=== PATIENT | female | born 1980 | race Caucasian/White ===

== ENCOUNTER 2020-01-04 08:37 | Emergency (ER) | payer BC ==
--- OUTSIDE RECORDS SUMMARY | 2020-01-04 08:43 | XMS REPORT | Continuity of Care Document ---
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 Problems Active Problems Provider Date Uterine scar from previous surgery in [place] Onset: 01/31/2014 , childbirth and the puerperium - delivered Thrombocytopenic disorder Noelle Roque RPA-C, [facility] Onset: 04/27/2014 Wound seroma Joann Burkett MD Onset: 07/23/2014 Social History Type Date Description Comments Sex Unknown Tobacco Use Start: Unknown Never Smoked Cigarettes ETOH Use Denies alcohol use Recreational Drug Use Denies Drug Use Tattoo/Piercing Tattoo one top of right foot Tattoo/Piercing Pierced ears Sun Exposure Uses sunscreen Seat Belt/Car Seat always uses seat belt Guns in Home Yes, Locked Up Smoke Alarms Yes Smoke Alarms Carbon Monoxide Detector: Yes Recent Travel There has not been recent travel abroad Allergies, Adverse Reactions, Alerts Description No Known Drug Allergies Medications Active Medications SIG Qnty Indications Ordering Provider Date Mirena (52 MG) to be inserted in 1units Joann Burkett MD 11/30/2019 office 20mcg/24HR IUD Diflucan 1 by mouth x's1, 2tabs Cecy Low, 03/06/2015 150mg Tablets may repeat in 4 CNM days if needed Mirena Lot #Tuoowvx [place] 10/04/2014 20mcg/24HR IUD inserted 10/04/14 to be removed 10/04/19 Nystatin apply to area 15gm Cecy Low, 08/22/2014 [id number]/GM twice a day for CNM Cream as long as infant is being treated Vitamin D-3 2 po qd Joann Burkett MD 02/02/2014 2000Unit Tablets Multi +Dha 1 po qd 30caps Unknown 27-0.8-228mg Capsules Motrin 600 MG 1 q 6 hrs Unknown Immunizations Description No Information Available Vital Signs Date Vital Result Comment 11/05/2014 1:55pm BP Systolic 118 mmHg BP Diastolic 68 mmHg Weight 139.00 lb Height 68 inches 5'8" BMI (Body Mass Index) 21.1 kg/m2 10/04/2014 3:14pm BP Systolic 116 mmHg BP Diastolic 84 mmHg Weight 140.00 lb Height 68 inches 5'8" BMI (Body Mass Index) 21.3 kg/m2 Results Description No Information Available Procedures Description No Information Available Medical Devices Description No Information Available Encounters Description No Information Available Assessments Description No Information Available Plan of Treatment 10/04/2014 - [place] [facility].[email or web address] Complication Other Seroma Complicating A ProcedureComments:no s/sx of infection and reviewed what those s/sx of infection would be. time spent [id number] Insertion IUDComments:reviewed r/b of placement of iud prior to placing mirena including but not limited to bleeding infection perforation of uterus embedded iud and expulsion of iud.she tolerated procedure well and will f/u in 4wks for string check. see procedure note for details.time spent 10min Functional Status Functional Condition Comment Date Status None Active Mental Status Description No Information Available Referrals Description No Information Available
--- OUTSIDE RECORDS SUMMARY | 2020-01-04 08:43 | XMS REPORT | Continuity of Care Document ---
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 time spent [id number] Insertion IUDComments:reviewed r/b of placement of iud [...]
[2020-01-04 08:51] VITALS: BP 128/76
[2020-01-04 09:13] LABS: Influenza A Molecular POSITIVE (Negative)
--- NOTE | 2020-01-04 09:48 | UC ---
General HPI - HPI Summary HPI Summary: Yesterday started with PND, cough and sore throat. This morning woke up feeling like she was hit by a truck. Chills/fever and URI s/s persisted. No smoking hx. No n/v/d. Did get flu shot. Works at [employer] Has used inhalers because her cough has given her a hernia meds; reviewed - History of Current Complaint Chief Complaint: UCRespiratory Stated Complaint: FEVER,COUGH Time Seen by Provider: 01/04/20 08:53 Hx Last Menstrual Period: Mirena IUD Pain Intensity: 0 - Allergy/Home Medications Allergies/Adverse Reactions: Allergies Allergy/AdvReac Type Severity Reaction Status Date / Time No Known Allergies Allergy Verified 01/04/20 08:48 Home Medications: Home Medications Albuterol HFA INHALER* [Ventolin HFA Inhaler*] 2 puff INH Q4H PRN #1 mdi [Rx] Benzonatate CAP* [Tessalon 100 MG CAP*] 100 mg PO TID PRN #30 cap 01/04/20 [Rx] Levonorgestrel (Iud) [Mirena IUD] 20 mcg IU ONCE 01/04/20 [History Confirmed 03/20] Oseltamivir CAP* [Tamiflu CAP*] 75 mg PO BID #10 cap 01/04/20 [Rx] Spacer/Holding Chamber (NF) [Easivent CHAMBER (NF)] 1 applic INH Q4HR PRN #1 device 01/04/20 [Rx] PMH/Surg Hx/FS Hx/Imm Hx Previously Healthy: Yes - Surgical History Surgical History: Yes Surgery Procedure, Year, and Place: Umbilical Herniorrhaphy, [address] [place] [address] ; x 2 , R knee - Family History Known Family History: Positive: None, Unknown - Social History Alcohol Use: Rare Substance Use Type: None Smoking Status (MU): Never Smoked Tobacco - Immunization History Most Recent Influenza Vaccination: [id number] Review of Systems All Other Systems Reviewed And Are Negative: Yes Constitutional: Positive: Fever, Chills ENT: Positive: Sore Throat, Nasal Discharge Respiratory: Positive: Cough Physical Exam Triage Information Reviewed: Yes Appearance: Other: - mildly ill appearing Vital Signs: Initial Vital Signs Temp 100.6 F 01/04/20 08:46 Pulse 111 01/04/20 08:46 Resp 18 01/04/20 08:46 BP 128/76 01/04/20 08:46 Pulse Ox 100 01/04/20 08:46 Vital Signs Reviewed: Yes ENT: Positive: Pharyngeal erythema, Nasal congestion, TMs normal Neck: Positive: Supple, Nontender Respiratory: Positive: Lungs clear, Normal breath sounds Cardiovascular: Positive: RRR, No Murmur Course/Dx - Course Course Of Treatment: This is a 39 yr old with flu like symptoms Flu A: positive Nontoxic appearing Plan Start Tamiflu as prescribed Can use tessalon pearls and albuterol with spacer - as prescribed as needed for cough Continue to rest, fluids and ibuprofen as needed for pain/fever If symptoms persist or worsen, recommend follow up with your PCP or return to urgent care - Diagnoses Provider Diagnosis: Influenza A Discharge ED - Sign-Out/Discharge Documenting (check all that apply): Patient Departure All imaging exams completed and their final reports reviewed: No Studies - Discharge Plan Condition: Good Disposition: HOME Prescriptions: Albuterol HFA INHALER* [Ventolin HFA Inhaler*] 2 puff INH Q4H PRN #1 mdi PRN Reason: Cough Benzonatate CAP* [Tessalon 100 MG CAP*] 100 mg PO TID PRN #30 cap PRN Reason: Cough Oseltamivir CAP* [Tamiflu CAP*] 75 mg PO BID #10 cap Spacer/Holding Chamber (NF) [Easivent CHAMBER (NF)] 1 applic INH Q4HR PRN #1 device PRN Reason: Cough Patient Education Materials: Influenza (ED) Forms: *Work Release Referrals: Ad Cottrell PA [Primary Care Provider] - Additional Instructions: Start Tamiflu as prescribed Can use tessalon pearls and albuterol with spacer - as prescribed as needed for cough Continue to rest, fluids and ibuprofen as needed for pain/fever If symptoms persist or worsen, recommend follow up with your PCP or return to urgent care - Billing Disposition and Condition Condition: GOOD Disposition: Home
--- NOTE | 2020-01-04 10:15 | UC ---
UC General HPI - History of Current Complaint Chief Complaint: UCRespiratory Stated Complaint: FEVER,COUGH Time Seen by Provider: 01/04/20 08:53 Hx Last Menstrual Period: Mirena IUD Pain Intensity: 0 - Allergy/Home Medications Allergies/Adverse Reactions: Allergies Allergy/AdvReac Type Severity Reaction Status Date / Time No Known Allergies Allergy Verified 01/04/20 08:48 Home Medications: Home Medications Albuterol HFA INHALER* [Ventolin HFA Inhaler*] 2 puff INH Q4H PRN #1 mdi [Rx] Benzonatate CAP* [Tessalon 100 MG CAP*] 100 mg PO TID PRN #30 cap 01/04/20 [Rx] Levonorgestrel (Iud) [Mirena IUD] 20 mcg IU ONCE 01/04/20 [History Confirmed 03/20] Oseltamivir CAP* [Tamiflu CAP*] 75 mg PO BID #10 cap 01/04/20 [Rx] Spacer/Holding Chamber (NF) [Easivent CHAMBER (NF)] 1 applic INH Q4HR PRN #1 device 01/04/20 [Rx] PMH/Surg Hx/FS Hx/Imm Hx - Surgical History Surgical History: Yes Surgery Procedure, Year, and Place: Umbilical Herniorrhaphy, [facility], [place] ; x 2 , R knee - Family History Known Family History: Positive: None, Unknown - Social History Alcohol Use: Rare Substance Use Type: None Smoking Status (MU): Never Smoked Tobacco - Immunization History Most Recent Influenza Vaccination: [id number] Review of Systems All Other Systems Reviewed And Are Negative: Yes Physical Exam Vital Signs: Initial Vital Signs Temp 100.6 F 01/04/20 08:46 Pulse 111 01/04/20 08:46 Resp 18 01/04/20 08:46 BP 128/76 01/04/20 08:46 Pulse Ox 100 01/04/20 08:46 Course/Dx - Course Course Of Treatment: This is a 39 yr old with flu like symptoms Nontoxic appearing +Flu A Plan Start Tamiflu as prescribed Can use tessalon pearls and albuterol with spacer - as prescribed as needed for cough Continue to rest, fluids and ibuprofen as needed for pain/fever If symptoms persist or worsen, recommend follow up with your PCP or return to urgent care - Diagnoses Provider Diagnosis: Influenza A Discharge ED - Sign-Out/Discharge Documenting (check all that apply): Patient Departure All imaging exams completed and their final reports reviewed: No Studies - Discharge Plan Condition: Good Disposition: HOME Prescriptions: Albuterol HFA INHALER* [Ventolin HFA Inhaler*] 2 puff INH Q4H PRN #1 mdi PRN Reason: Cough Benzonatate CAP* [Tessalon 100 MG CAP*] 100 mg PO TID PRN #30 cap PRN Reason: Cough Oseltamivir CAP* [Tamiflu CAP*] 75 mg PO BID #10 cap Spacer/Holding Chamber (NF) [Easivent CHAMBER (NF)] 1 applic INH Q4HR PRN #1 device PRN Reason: Cough Patient Education Materials: Influenza (ED) Forms: *Work Release Referrals: Ad Cottrell PA [Primary Care Provider] - Additional Instructions: Start Tamiflu as prescribed Can use tessalon pearls and albuterol with spacer - as prescribed as needed for cough Continue to rest, fluids and ibuprofen as needed for pain/fever If symptoms persist or worsen, recommend follow up with your PCP or return to urgent care - Billing Disposition and Condition Condition: GOOD Disposition: Home
== END 2020-01-04 09:50 | disposition home or self-care (01) ==
LOC: UCCORT 08:37
DX: J10.1 Influenza due to other identified influenza virus with other respiratory manifestations (principal)
CPT/HCPCS: 99202; G0463